=== PATIENT | female | born 1945 | race Caucasian/White ===

== ENCOUNTER 2016-12-30 15:58 | Emergency (ER) | payer MEDICARE, OTHER ==
[~2016-12-30] VITALS: Ht 162.6 cm; Wt 77.0 kg
[2016-12-30 16:00] VITALS: BP 178/68
[2016-12-30] MEDS ORDERED: DIPH,PERTUSS(ACELL),TET VAC/PF 0.5 ML IM-VACC ONE ×2 (16:30→16:59)
[2016-12-30] MEDS ORDERED: LIDOCAINE 1%, 20ML SQ ONE (16:30)
== END 2016-12-30 18:14 | disposition home or self-care (01) ==
LOC: ED 17:40
DX: S81.012A Laceration without foreign body, left knee, initial encounter (principal); W29.3XXA Contact with powered garden and outdoor hand tools and machinery, initial encounter; Y93.89 Activity, other specified; Y92.009 Unspecified place in unspecified non-institutional (private) residence as the place of occurrence of the external cause; Y99.9 Unspecified external cause status
CPT/HCPCS: 12002; 73564; 90471; 90715; 99284; J3490

== ENCOUNTER 2019-05-08 12:29 | Inpatient (IN) | payer MEDICARE, OTHER ==
[~2019-05-08] VITALS: Ht 162.6 cm; Wt 84.6 kg
[~2019-05-08 12:29] MED LIST: OXYC5CAP2 PO
--- NOTE | 2019-05-08 13:23 | NUR ---
TO [facility]
[2019-05-08 13:42] LABS: BASOPHILS # (AUTO) 0.02 x10^3/uL (0-0.1); BASOPHILS % (AUTO) 0 % (0-1); EOSINOPHILS # (AUTO) 0.04 x10^3/uL (0-0.4); EOSINOPHILS % (AUTO) 0 % (1-7); LYMPHOCYTES # (AUTO) 2.02 x10^3/uL (1-3.4); LYMPHOCYTES % (AUTO) 25 % (22-44); MD NO; MEAN CORPUSCULAR HEMOGLOBIN 29.2 pg (27.0-34.8); MEAN CORPUSCULAR VOLUME 88.4 fL (80-100); MONOCYTES # (AUTO) 0.28 x10^3/uL (0.2-0.8); MONOCYTES % (AUTO) 3 % (2-9); NEUTROPHILS # (AUTO) 5.81 x10^3/uL (1.8-6.8); NEUTROPHILS % (AUTO) 71 % (42-75); PLATELET COUNT 256 x10^3/uL (130-400); RED BLOOD COUNT 5.07 x10^6/uL (3.82-5.3); RED CELL DISTRIBUTION WIDTH 14.1 % (9.6-15.2)
[2019-05-08 13:48] LABS: INTERNATIONAL NORMALIZED RATIO 0.94 (0.93-1.1); PROTHROMBIN TIME 9.9 Seconds (9.6-11.5)
--- NOTE | 2019-05-08 14:29 | NUR ---
Patient returned from radiology at this time.
--- NOTE | 2019-05-08 14:43 | NUR ---
Plan of care updated with patient, questions answered, verbalizes understanding. Call woodward within reach, continuous blood pressure, SPO2 and cardiac monitoring in place.
[2019-05-08 14:55] LABS: MICROSCOPIC NOT IND
[2019-05-08 14:57] LABS: CULTURE INDICATED? NO
[2019-05-08] MEDS ORDERED: LEVO50TA5 PO (14:57)
[2019-05-08] MEDS ORDERED: SERT100T PO (14:57)
[2019-05-08] MEDS ORDERED: AMLO10TA8 PO (14:57)
[2019-05-08] MEDS ORDERED: ALBU8.5H8 INH (14:57)
[2019-05-08] MEDS ORDERED: ASPIRIN 325 MG TABLET PO ONE (15:31)
[2019-05-08] MEDS ORDERED: ASPIRIN 325 MG TABLET ONE (15:52)
--- NOTE | 2019-05-08 15:59 | NUR ---
Plan of care updated with patient, questions answered.
[2019-05-08] MEDS ORDERED: CLOPIDOGREL 300 MG TABLET PO ONE (16:00)
[2019-05-08] MEDS ORDERED: ONDANSETRON 2MG/ML, 2ML IVPush PRN (16:30)
[2019-05-08] MEDS ORDERED: ONDANSETRON 4 MG TABLET PO PRN (16:30)
--- NOTE | 2019-05-08 16:53 | NUR ---
Report given to Edouard RN
[2019-05-08 17:00] LABS: ANION GAP 5 mmol/L (5-15); CALCIUM 9.3 mg/dL (8.5-10.1); CHLORIDE 108 mmol/L (98-107)
[2019-05-08] MEDS ORDERED: ALBUTEROL SULFATE 2.5 MG/3 ML NPPB PRN (17:00)
[2019-05-08 17:27] LABS: ALANINE AMINOTRANSFERASE 27 U/L (12-78); ALKALINE PHOSPHATASE 98 U/L (45-117); BILIRUBIN,TOTAL 0.3 mg/dL (0.2-1.0); CREATININE 0.98 mg/dL (0.55-1.02); TOTAL PROTEIN 7.9 g/dL (6.4-8.2)
[2019-05-08 18:28] VITALS: BP 179/76
[2019-05-08] MEDS ORDERED: ACETAMINOPHEN 325 MG TABLET PO PRN (19:00)
[2019-05-08 19:26] VITALS: BP 174/70
[2019-05-08] MEDS ORDERED: ENALAPRILAT 1.25 MG/ML, 2ML IV ONE (19:30)
[2019-05-08 19:47] VITALS: BP 121/69
[2019-05-08] MEDS ORDERED: ATORVASTATIN 40 MG TABLET PO SCH (21:00)
[2019-05-08 21:54] VITALS: BP 128/67
[2019-05-09 00:59] VITALS: BP 121/67
[2019-05-09 05:33] LABS: BASOPHILS # (AUTO) 0.03 x10^3/uL (0-0.1); BASOPHILS % (AUTO) 0 % (0-1); EOSINOPHILS # (AUTO) 0.17 x10^3/uL (0-0.4); EOSINOPHILS % (AUTO) 2 % (1-7); LYMPHOCYTES # (AUTO) 2.85 x10^3/uL (1-3.4); LYMPHOCYTES % (AUTO) 38 % (22-44); MD NO; MEAN CORPUSCULAR HEMOGLOBIN 29.6 pg (27.0-34.8); MEAN CORPUSCULAR HGB CONC 32.7 g/dL (32.4-35.8); MEAN CORPUSCULAR VOLUME 90.6 fL (80-100); MEAN PLATELET VOLUME 8.1 fL (7.4-10.4); MONOCYTES # (AUTO) 0.45 x10^3/uL (0.2-0.8); MONOCYTES % (AUTO) 6 % (2-9); NEUTROPHILS # (AUTO) 3.91 x10^3/uL (1.8-6.8); NEUTROPHILS % (AUTO) 53 % (42-75); PLATELET COUNT 232 x10^3/uL (130-400); RED BLOOD COUNT 4.65 x10^6/uL (3.82-5.3); RED CELL DISTRIBUTION WIDTH 14.3 % (9.6-15.2)
[2019-05-09 05:43] LABS: ALBUMIN 3.4 g/dL (3.4-5.0); ANION GAP 8 mmol/L (5-15); CALCIUM 8.4 mg/dL (8.5-10.1); CHLORIDE 109 mmol/L (98-107)
[2019-05-09 05:47] LABS: ALANINE AMINOTRANSFERASE 23 U/L (12-78); ALKALINE PHOSPHATASE 80 U/L (45-117); BILIRUBIN,TOTAL 0.4 mg/dL (0.2-1.0); CHOL/HDL RATIO 3.7; CHOLESTEROL, TOTAL 189 mg/dL (140-239); CREATININE 0.98 mg/dL (0.55-1.02); HDL CHOL % 27 % (28-40); HDL CHOLESTEROL (DIRECT) 51 mg/dL (40-60); LDL CHOLESTEROL,CALCULATED 113 mg/dL (54-169); LDL/HDL RATIO 2.2 (0.5-3.0); TOTAL PROTEIN 6.6 g/dL (6.4-8.2); TRIGLYCERIDES 125 mg/dL (50-200); VLDL CHOLESTEROL 25 mg/dL (0-25)
[2019-05-09] MEDS ORDERED: LEVOTHYROXINE 50 MCG TABLET PO SCH (06:00)
[2019-05-09 06:50] VITALS: BP 117/61
[2019-05-09] MEDS ORDERED: ASPIRIN 325 MG TABLET PO SCH (07:00)
[2019-05-09] MEDS ORDERED: SERTRALINE 100MG TABLET PO SCH (09:00)
[2019-05-09] MEDS ORDERED: CLOPIDOGREL 75 MG TABLET PO SCH (09:00)
[2019-05-09] MEDS ORDERED: ASPIRIN 81 MG TABLET CHEW PO/NG SCH (09:00)
[2019-05-09] MEDS ORDERED: AMLODIPINE 5 MG TABLET PO SCH (09:00)
[2019-05-09 12:45] VITALS: BP 121/66
[2019-05-09] MEDS ORDERED: ASPI325T17 PO (14:15)
[2019-05-09] MEDS ORDERED: ATOR-2 PO (14:15)
[2019-05-09] MEDS ORDERED: CLOP75TA PO (14:15)
[2019-05-09] MEDS ORDERED: ATORVASTATIN 80 MG TABLET PO SCH (21:00)
== END 2019-05-09 15:30 | disposition home or self-care (01) | DRG 65 ==
LOC: ED 12:49 → EDIP 15:58 → 4EST 17:57 → DCLOUNGE 05-09 15:22
PROVIDERS: ADMIT Internal Medicine; ATTEND Internal Medicine
DX: I63.89 Other cerebral infarction (principal); G81.94 Hemiplegia, unspecified affecting left nondominant side; R29.705 NIHSS score 5; I10 Essential (primary) hypertension; E03.9 Hypothyroidism, unspecified; R47.1 Dysarthria and anarthria; R27.0 Ataxia, unspecified; F32.9 Major depressive disorder, single episode, unspecified; Z91.041 Radiographic dye allergy status; Z88.0 Allergy status to penicillin; Z88.2 Allergy status to sulfonamides; Z88.8 Allergy status to other drugs, medicaments and biological substances; Z79.82 Long term (current) use of aspirin; Z79.02 Long term (current) use of antithrombotics/antiplatelets; Z79.899 Other long term (current) drug therapy
CPT/HCPCS: 0399T; 36415; 70450; 70544; 70547; 70551; 80053; 80061; 81003; 82607; 84443; 85025; 85610; 85730; 93005; 93306; G0378

== ENCOUNTER 2019-05-10 07:06 | Inpatient (IN) | payer MEDICARE, OTHER ==
[~2019-05-10] VITALS: Ht 162.6 cm; Wt 76.8 kg
[~2019-05-10 07:06] MED LIST changes: +ALBU8.5H8 INH; +AMLO10TA8 PO; +ASPI325T17 PO; +ATOR-2 PO; +CLOP75TA PO; +LEVO50TA5 PO; +SERT100T PO
--- NOTE | 2019-05-10 07:24 | NUR ---
PT BIB [facility] FOR WEAKNESS UPON WAKING AT 0600. PT HAS HISTORY OF LEFT SIDED STROKE, NO DEFECITS, AND A TIA ON 05/07. PT TEARFUL AND ANXIOUS UPON ARRIVAL. NEURO CHECKS WNL, HOWEVER, PT STATES THAT SHE EXPERIENCED DIFFICULTY SIGNING HER NAME FOR REGISTRATION UPON ARRIVAL. HEART RATE IN HIGH 40'S ON MONITOR. PT ALSO HAS 3/10 ACHE IN THE BASE OF HER HEAD AND NECK.
[2019-05-10 08:33] LABS: BASOPHILS # (AUTO) 0.03 x10^3/uL (0-0.1); BASOPHILS % (AUTO) 0 % (0-1); EOSINOPHILS # (AUTO) 0.08 x10^3/uL (0-0.4); EOSINOPHILS % (AUTO) 1 % (1-7); LYMPHOCYTES # (AUTO) 1.61 x10^3/uL (1-3.4); LYMPHOCYTES % (AUTO) 18 % (22-44); MD NO; MEAN CORPUSCULAR HEMOGLOBIN 29.3 pg (27.0-34.8); MEAN CORPUSCULAR VOLUME 88.8 fL (80-100); MEAN PLATELET VOLUME 7.7 fL (7.4-10.4); MONOCYTES # (AUTO) 0.47 x10^3/uL (0.2-0.8); MONOCYTES % (AUTO) 5 % (2-9); NEUTROPHILS # (AUTO) 6.67 x10^3/uL (1.8-6.8); NEUTROPHILS % (AUTO) 75 % (42-75); PLATELET COUNT 229 x10^3/uL (130-400); RED BLOOD COUNT 4.87 x10^6/uL (3.82-5.3); RED CELL DISTRIBUTION WIDTH 13.9 % (9.6-15.2)
[2019-05-10 08:39] LABS: ANION GAP 4 mmol/L (5-15); CHLORIDE 109 mmol/L (98-107); CREATININE 1.08 mg/dL (0.55-1.02); INTERNATIONAL NORMALIZED RATIO 0.98 (0.93-1.1); PROTHROMBIN TIME 10.3 Seconds (9.6-11.5)
--- NOTE | 2019-05-10 09:13 | NUR ---
PT RESTING IN BED. DENIES ANY NEEDS AT THIS TIME. CALL LIGHT IN REACH.
--- NOTE | 2019-05-10 09:56 | NUR ---
REPORT GIVEN TO RECEIVING RN. PT DENIES ANY NEEDS AT THIS TIME, AWAITING TRANSPORT.
[2019-05-10] MEDS ORDERED: ASPIRIN 300 MG SUPP PR ONE (12:00)
[2019-05-10 12:24] VITALS: BP 147/67
[2019-05-10] MEDS ORDERED: ONDANSETRON 2MG/ML, 2ML IVPush PRN (14:00)
[2019-05-10] MEDS ORDERED: PROMETHAZINE 25 MG/ML, 1ML IM PRN (14:00)
[2019-05-10] MEDS ORDERED: MORPHINE SULFATE 4 MG/ML, 1ML IVPush PRN (16:30)
[2019-05-10] MEDS ORDERED: ACETAMINOPHEN 325 MG SUPP PR PRN (16:30)
--- NOTE | 2019-05-10 17:03 | NUR ---
REC NPO; severe pharyngeal dysphagia; swallow precautions sheet to be posted at bedside Addendum: 05/10/19 at [address] Amended: Links added.
[2019-05-10] MEDS: SODIUM CHLORIDE 0.9% 1,000 ML IV SCH (17:30)
[2019-05-10] MEDS ORDERED: SODIUM CHLORIDE 0.9% 1,000 ML IV SCH (17:30)
[2019-05-10 19:44] VITALS: BP 145/71
[2019-05-10] MEDS: ATORVASTATIN 80 MG TABLET PO SCH ×2 (21:00)
[2019-05-11 01:17] VITALS: BP 145/58
[2019-05-11] MEDS: SODIUM CHLORIDE 0.9% 1,000 ML IV SCH ×2 (04:00→14:00)
[2019-05-11] MEDS: ASPIRIN 325 MG TABLET PO SCH (06:00)
[2019-05-11 07:06] VITALS: BP 149/63
[2019-05-11] MEDS: SERTRALINE 100MG TABLET PO SCH (09:00)
[2019-05-11] MEDS ORDERED: AMLODIPINE 5 MG TABLET PO SCH (09:00)
[2019-05-11 14:52] VITALS: BP 149/69
[2019-05-11] MEDS: CLOPIDOGREL 75 MG TABLET PO SCH (15:14)
[2019-05-11] MEDS: LEVOTHYROXINE 50 MCG TABLET PO SCH (15:15)
[2019-05-11 18:57] VITALS: BP 148/73
[2019-05-11] MEDS: ATORVASTATIN 80 MG TABLET PO SCH ×2 (19:43→21:00)
[2019-05-12 00:27] VITALS: BP 147/73
[2019-05-12] MEDS: SODIUM CHLORIDE 0.9% 1,000 ML IV SCH (01:39)
[2019-05-12] MEDS: LEVOTHYROXINE 50 MCG TABLET PO SCH (08:27)
[2019-05-12] MEDS: SERTRALINE 100MG TABLET PO SCH (08:27)
[2019-05-12] MEDS: CLOPIDOGREL 75 MG TABLET PO SCH (08:28)
[2019-05-12] MEDS: ASPIRIN 325 MG TABLET PO SCH (08:29)
[2019-05-12 08:59] LABS: ALBUMIN 3.3 g/dL (3.4-5.0); ANION GAP 5 mmol/L (5-15); CALCIUM 8.6 mg/dL (8.5-10.1); CHLORIDE 112 mmol/L (98-107); CREATININE 0.69 mg/dL (0.55-1.02)
[2019-05-12] MEDS ORDERED: AMLODIPINE 5 MG TABLET PO SCH (09:00)
[2019-05-12] MEDS ORDERED: TAMSULOSIN 0.4 MG CAP.ER.24H PO SCH (09:00)
[2019-05-12 09:01] LABS: ALANINE AMINOTRANSFERASE 22 U/L (12-78); ALKALINE PHOSPHATASE 83 U/L (45-117); BILIRUBIN,TOTAL 0.6 mg/dL (0.2-1.0); TOTAL PROTEIN 6.9 g/dL (6.4-8.2)
[2019-05-12 09:30] VITALS: BP 136/71
[2019-05-12] MEDS ORDERED: TAMS-11 PO (14:09)
[2019-05-12 15:51] VITALS: BP 146/71
[2019-05-12 15:57] VITALS: BP 132/71
[2019-05-12] MEDS ORDERED: SODIUM CHLORIDE 0.9% 1,000 ML IV SCH (17:30)
== END 2019-05-12 16:52 | DRG 64 ==
LOC: ED 08:04 → 4EST 09:27
PROVIDERS: ADMIT Internal Medicine; ATTEND Internal Medicine
DX: I63.89 Other cerebral infarction (principal); N17.0 Acute kidney failure with tubular necrosis; G81.91 Hemiplegia, unspecified affecting right dominant side; G81.94 Hemiplegia, unspecified affecting left nondominant side; I10 Essential (primary) hypertension; E03.9 Hypothyroidism, unspecified; E87.6 Hypokalemia; R29.810 Facial weakness; Z79.02 Long term (current) use of antithrombotics/antiplatelets; Z88.0 Allergy status to penicillin; Z88.2 Allergy status to sulfonamides; R29.705 NIHSS score 5; R47.1 Dysarthria and anarthria; R27.0 Ataxia, unspecified; F32.9 Major depressive disorder, single episode, unspecified; Z91.041 Radiographic dye allergy status; Z88.8 Allergy status to other drugs, medicaments and biological substances; Z79.82 Long term (current) use of aspirin; Z79.899 Other long term (current) drug therapy
CPT/HCPCS: 36415; 70450; 70551; 74230; 80048; 80053; 85025; 85610; 85651; 85730; 86140; 93005; 99285; G0378; J2270; J7030